=== PATIENT | female | born 1990 | race Caucasian/White ===

== ENCOUNTER 2021-03-05 01:00 | Inpatient (IN) | payer BC ==
[2021-03-05] MEDS ORDERED: Bupivacaine 0.25% HCL 30 ML VIAL ONE (08:00)
[2021-03-05] MEDS ORDERED: Zolpidem Tartrate 5 MG TAB PO PRN (20:17)
[2021-03-05] MEDS ORDERED: Ondansetron PF 4 MG/2 ML Vial IVP PRN (20:17)
[2021-03-05] MEDS ORDERED: Misoprostol 100 MCG TAB VAG PRN (20:17)
[2021-03-05] MEDS ORDERED: Lidocaine 1% (PF) 30 ML VIAL SC PRN (20:17)
[2021-03-05] MEDS ORDERED: Dextrose 50% Abboject 50 ML SYRINGE SLOW IVP PRN (20:17)
[2021-03-05] MEDS ORDERED: hydrALAZINE 20 MG/ML VIAL SLOW IVP PRN (20:17)
[2021-03-05] MEDS ORDERED: Dextrose 5% in Water 1,000 ML IV PRN (20:17)
[2021-03-05] MEDS ORDERED: Misoprostol 100 MCG TAB VAG SCH (20:17)
[2021-03-05] MEDS ORDERED: Ibuprofen 800 MG TAB PO PRN (20:17)
[2021-03-05] MEDS ORDERED: NS / Oxytocin 40 units/1000ml 1,000 ML IV PRN (20:17)
[2021-03-05] MEDS ORDERED: Acetaminophen 500 MG TAB PO PRN (20:17)
[2021-03-05] MEDS ORDERED: HumaLOG 300 UNITS/3 ML VIAL SC PRN (20:17)
[2021-03-05] MEDS ORDERED: Butorphanol Tartrate 1 MG/ML VIAL SLOW IVP PRN (20:17)
[2021-03-05] MEDS ORDERED: Promethazine HCl 25 MG/ML VIAL IM PRN (20:17)
[2021-03-05] MEDS ORDERED: HYDROcodone/Acetaminophen 5/325 mg Tablet PO PRN ×2 (20:17)
[2021-03-05 20:18] VITALS: BMI 31.3
[2021-03-05] MEDS: Lactated Ringer's 1,000 ML IV SCH (21:18)
[2021-03-05 22:06] LABS: Mean Corpuscular HGB CONC 34.9 g/dL (32.0-36.0); Mean Corpuscular Hemoglobin 30.5 pg (27.0-33.0); Mean Corpuscular Volume 87.5 fl (81.6-98.3); Mean Platelet Volume 10.2 fl (7.4-10.4); Platelet Count 355 10x3/uL (150-450); RBC Distribution Width 12.8 % (11.5-14.5); Red Blood Cell (RBC) Count 3.93 10x6/uL (3.90-5.03); White Blood Cell (WBC) Count 14.5 10x3/uL (3.5-10.5)
[2021-03-05 22:40] LABS: Hep B Surf Ag Non-Reactive S/CO (NonReactive); Syphilis Antibody Nonreactive (Nonreactive); Syphilis Antibody Index 0.05 S/CO (<1.00 Non-Reactive)
[2021-03-05 22:48] LABS: HBSAg Index 0.15 S/CO (0-0.99)
[2021-03-06] MEDS ORDERED: NS w/ Oxytocin 30 units 500 ML IVPB SCH ×2 (06:45)
[2021-03-06] MEDS ORDERED: NS w/ Oxytocin 30 units 500 ML IVPB PRN (06:45)
[2021-03-06] MEDS: Lactated Ringer's 1,000 ML IV SCH ×2 (07:20→11:40)
[2021-03-06] MEDS ORDERED: Fentanyl 4 mcg/Bup 0.1% Cadd 100 ML ONE ×2 (11:04→23:50)
[2021-03-06] MEDS: Fentanyl 4 mcg/Bupivacaine 0.1% Cassette 100 ML EPIDURAL SCH ×3 (11:36→23:52)
[2021-03-06] MEDS ORDERED: Ondansetron PF 4 MG/2 ML Vial IVP PRN (11:43)
[2021-03-06] MEDS ORDERED: Lactated Ringer's 500 ML IV PRN (11:43)
[2021-03-06] MEDS ORDERED: Naloxone HCl 0.4 mg/ml Vial IVP PRN ×2 (11:43)
[2021-03-06] MEDS ORDERED: diphenhydrAMINE 50 MG/ML VIAL IVP PRN (11:43)
[2021-03-06] MEDS ORDERED: Acetaminophen 325 MG TAB PO PRN (11:43)
[2021-03-06] MEDS ORDERED: Promethazine HCl 25 MG/ML VIAL IM PRN (11:43)
[2021-03-06] MEDS ORDERED: Communication Order-Pharmacy FS SCH (11:45)
[2021-03-06] MEDS ORDERED: ePHEDrine Sulfate 50 MG/10 ML VIAL SLOW IVP PRN (11:57)
[2021-03-06] MEDS ORDERED: Hydrocerin (Eucerin) Cream 120 gm Jar TOP PRN (11:57)
[2021-03-06] MEDS ORDERED: Calcium Carbonate 500 MG ChewTAB PO PRN (20:50)
[2021-03-07] MEDS ORDERED: Misoprostol 200 MCG TAB ONE (03:41)
[2021-03-07] MEDS ORDERED: Fentanyl 4 mcg/Bup 0.1% Cadd 100 ML ONE (07:21)
[2021-03-07] MEDS ORDERED: Tranexamic Acid 1,000 MG/10 ML VIAL ONE (07:27)
[2021-03-07] MEDS ORDERED: Carboprost 250 MCG/ML AMP ONE (07:27)
[2021-03-07] MEDS ORDERED: Methylergonovine 0.2 MG/ML VIAL ONE (07:28)
[2021-03-07] MEDS: Fentanyl 4 mcg/Bupivacaine 0.1% Cassette 100 ML EPIDURAL SCH (07:40)
[2021-03-07] MEDS: Lactated Ringer's 1,000 ML IV SCH (07:50)
[2021-03-07] MEDS ORDERED: Misoprostol 200 MCG TAB PR SCH (11:30)
[2021-03-07] MEDS ORDERED: Ibuprofen 800 MG TAB PO SCH (11:30)
[2021-03-07] MEDS ORDERED: Adacel (T-DAP) 0.5 ML SYRINGE IM ONE (11:49)
[2021-03-07] MEDS ORDERED: Bisacodyl 10 MG SUPP PR PRN (11:49)
[2021-03-07] MEDS ORDERED: diphenhydrAMINE 25 MG CAP PO PRN (11:49)
[2021-03-07] MEDS ORDERED: Milk Of Magnesia 30 ML UDCUP PO PRN (11:49)
[2021-03-07] MEDS ORDERED: hydrALAZINE 20 MG/ML VIAL SLOW IVP PRN (11:49)
[2021-03-07] MEDS ORDERED: Ondansetron PF 4 MG/2 ML Vial IVP PRN (11:49)
[2021-03-07] MEDS ORDERED: HYDROcodone/Acetaminophen 5/325 mg Tablet PO PRN ×2 (11:49)
[2021-03-07] MEDS ORDERED: Preparation H Ointment 28 GM TUBE PR PRN (11:49)
[2021-03-07] MEDS ORDERED: Benzocaine-Menthol 82.5 ML CAN TOP PRN (11:49)
[2021-03-07] MEDS ORDERED: NS w/ Oxytocin 30 units 500 ML IV SCH (12:30)
[2021-03-07] MEDS: Ferrous Sulfate 325 MG TAB PO SCH (13:59)
[2021-03-07] MEDS: Ibuprofen 800 MG TAB PO SCH (20:24)
[2021-03-07] MEDS: Docusate Calcium (SURFAK) 240 MG CAP PO SCH (20:24)
[2021-03-08] MEDS: Lactated Ringer's 1,000 ML IV SCH (04:54)
[2021-03-08] MEDS: Ibuprofen 800 MG TAB PO SCH ×3 (04:59→22:42)
[2021-03-08 07:53] LABS: Hemoglobin 10.4 g/dL (12.0-15.5)
[2021-03-08] MEDS: Ferrous Sulfate 325 MG TAB PO SCH ×2 (08:40→16:07)
[2021-03-08] MEDS: Prenatal Vitamin 1 TAB PO SCH (08:41)
[2021-03-08] MEDS: Docusate Calcium (SURFAK) 240 MG CAP PO SCH ×2 (08:41→22:42)
[2021-03-09] MEDS: Ibuprofen 800 MG TAB PO SCH (05:15)
[2021-03-09 08:04] VITALS: BP 102/56; TEMP 98.2
[2021-03-09] MEDS: Docusate Calcium (SURFAK) 240 MG CAP PO SCH (10:55)
[2021-03-09] MEDS: Prenatal Vitamin 1 TAB PO SCH (10:55)
[2021-03-09] MEDS: Ferrous Sulfate 325 MG TAB PO SCH (10:56)
== END 2021-03-09 17:40 | disposition home or self-care (01) | DRG 806 ==
LOC: CSHLD 19:48 → CSHPP 03-07 12:00
PROVIDERS: ADMIT Obstetrics & Gynecology; ATTEND Obstetrics & Gynecology
PROC: 10D07Z6 Extraction of Products of Conception, Vacuum, Via Natural or Artificial Opening (ICD-10-PCS; principal; 2021-03-07)
PROC: 10907ZC Drainage of Amniotic Fluid, Therapeutic from Products of Conception, Via Natural or Artificial Opening (ICD-10-PCS; 2021-03-07)
PROC: 3E0P7VZ Introduction of Hormone into Female Reproductive, Via Natural or Artificial Opening (ICD-10-PCS; 2021-03-07)
PROC: 0W8NXZZ Division of Female Perineum, External Approach (ICD-10-PCS; 2021-03-07)
DX: O24.02 Pre-existing type 1 diabetes mellitus, in childbirth (principal); D68.61 Antiphospholipid syndrome; Z37.0 Single live birth; O99.12 Other diseases of the blood and blood-forming organs and certain disorders involving the immune mechanism complicating childbirth; O99.284 Endocrine, nutritional and metabolic diseases complicating childbirth; E03.9 Hypothyroidism, unspecified; O70.1 Second degree perineal laceration during delivery; O63.1 Prolonged second stage (of labor); Z20.822 Contact with and (suspected) exposure to COVID-19; E10.9 Type 1 diabetes mellitus without complications; Z3A.38 38 weeks gestation of pregnancy; Z79.4 Long term (current) use of insulin
CPT/HCPCS: 36415; 36416; 51702; 85014; 85018; 85027; 86780; 86850; 86900; 86901; 87340; J2590; S0020

== ENCOUNTER 2022-10-13 18:00 | Inpatient (IN) | payer OTHER ==
[2022-10-13] MEDS ORDERED: Lidocaine 1% (PF) 30 ML VIAL SC PRN (18:50)
[2022-10-13] MEDS ORDERED: Misoprostol 100 MCG TAB VAG SCH (18:50)
[2022-10-13] MEDS ORDERED: Butorphanol Tartrate 1 MG/ML VIAL SLOW IVP PRN (18:50)
[2022-10-13] MEDS ORDERED: hydrALAZINE 20 MG/ML VIAL SLOW IVP PRN (18:50)
[2022-10-13] MEDS ORDERED: NS w/ Oxytocin 30 units 500 ML IV SCH ×2 (18:50)
[2022-10-13] MEDS ORDERED: HYDROcodone/Acetaminophen 5/325 mg Tablet PO PRN ×2 (18:50)
[2022-10-13] MEDS ORDERED: Ondansetron PF 4 MG/2 ML Vial IVP PRN (18:50)
[2022-10-13] MEDS ORDERED: Promethazine HCl 25 MG/ML VIAL IM PRN (18:50)
[2022-10-13] MEDS ORDERED: Ibuprofen 800 MG TAB PO PRN (18:50)
[2022-10-13] MEDS ORDERED: Lactated Ringer's 1,000 ML IV SCH (18:50)
[2022-10-13 19:10] VITALS: BMI 30.8
[2022-10-13] MEDS ORDERED: Bupivacaine HCl 0.5%/Epinephrine 1:200,000/PF 30 ml Vial ONE (19:24)
[2022-10-13 19:57] LABS: Hemoglobin 12.5 g/dL (12.0-15.5); Mean Corpuscular Hemoglobin 31.2 pg (27.0-33.0); Mean Corpuscular Volume 86.5 fl (81.6-98.3); Mean Platelet Volume 9.8 fl (7.4-10.4); Platelet Count 359 10x3/uL (150-450); Red Blood Cell (RBC) Count 4.01 10x6/uL (3.90-5.03); White Blood Cell (WBC) Count 13.1 10x3/uL (3.5-10.5)
[2022-10-13 20:18] LABS: Glucose 93 mg/dL (70-105)
[2022-10-13 20:26] LABS: SARS-CoV-2 NAA Rapid Test Not Detected (NotDetected)
[2022-10-13 21:57] LABS: Syphilis Antibody Nonreactive (Nonreactive); Syphilis Antibody Index 0.05 S/CO (<1.00 Non-Reactive)
[2022-10-13 21:58] LABS: HBSAg Index 0.13 S/CO (0-0.99); Hep B Surf Ag Non-Reactive S/CO (NonReactive)
[2022-10-14] MEDS ORDERED: Misoprostol 100 MCG TAB ONE (03:15)
[2022-10-14] MEDS ORDERED: Fentanyl 2 mcg/Bup 0.1% Cadd 100 ML ONE (09:22)
[2022-10-14] MEDS ORDERED: Acetaminophen 325 MG TAB PO PRN (10:22)
[2022-10-14] MEDS ORDERED: Ondansetron PF 4 MG/2 ML Vial IVP PRN ×2 (10:22→21:44)
[2022-10-14] MEDS ORDERED: ePHEDrine Sulfate 50 MG/10 ML VIAL SLOW IVP PRN (10:22)
[2022-10-14] MEDS ORDERED: Moisturizing Cream (Eucerin) 113 GM JAR TOP PRN (10:22)
[2022-10-14] MEDS ORDERED: Lactated Ringer's 500 ML IV PRN (10:22)
[2022-10-14] MEDS ORDERED: Naloxone HCl 0.4 mg/ml Vial IVP PRN ×2 (10:22)
[2022-10-14] MEDS ORDERED: Promethazine HCl 25 MG/ML VIAL IM PRN (10:22)
[2022-10-14] MEDS ORDERED: diphenhydrAMINE 50 MG/ML VIAL IVP PRN (10:22)
[2022-10-14] MEDS ORDERED: Communication Order-Pharmacy FS SCH (10:30)
[2022-10-14] MEDS ORDERED: Fentanyl 2 mcg/Bupivacaine 0.1% Cassette 100 ML EPIDURAL SCH (10:30)
[2022-10-14] MEDS ORDERED: Lanolin Ointment 7 GM TUBE TOP PRN (21:44)
[2022-10-14] MEDS ORDERED: Boostrix 0.5 ML (Tdap) VIAL (>/=7 yrs of age) IM ONE (21:44)
[2022-10-14] MEDS ORDERED: Milk Of Magnesia 30 ML UDCUP PO PRN (21:44)
[2022-10-14] MEDS ORDERED: Benzocaine-Menthol 82.5 ML CAN TOP PRN (21:44)
[2022-10-14] MEDS ORDERED: hydrALAZINE 20 MG/ML VIAL SLOW IVP PRN (21:44)
[2022-10-14] MEDS ORDERED: Bisacodyl 10 MG SUPP PR PRN (21:44)
[2022-10-14] MEDS ORDERED: Preparation H Ointment 28 GM TUBE PR PRN (21:44)
[2022-10-14] MEDS ORDERED: HYDROcodone/Acetaminophen 5/325 mg Tablet PO PRN ×2 (21:44)
[2022-10-14] MEDS ORDERED: diphenhydrAMINE 25 MG CAP PO PRN (21:44)
[2022-10-14] MEDS ORDERED: Docusate 100 MG CAP PO SCH (22:00)
[2022-10-14] MEDS: Ibuprofen 800 MG TAB PO SCH (22:07)
[2022-10-15] MEDS: Ibuprofen 800 MG TAB PO SCH ×2 (05:13→12:47)
[2022-10-15] MEDS: Ferrous Sulfate 325 MG TAB PO SCH ×2 (07:31→16:08)
[2022-10-15] MEDS ORDERED: Prenatal Vitamin 1 TAB PO SCH (09:00)
[2022-10-15] MEDS ORDERED: Docusate 100 MG CAP PO SCH (09:00)
[2022-10-15 19:51] VITALS: BP 112/70; TEMP 98.4
== END 2022-10-15 21:05 | disposition home or self-care (01) | DRG 806 ==
LOC: CSHLD 18:36 → CSHPP 10-14 21:28
PROVIDERS: ADMIT Obstetrics & Gynecology; ATTEND Obstetrics & Gynecology
PROC: 10907ZC Drainage of Amniotic Fluid, Therapeutic from Products of Conception, Via Natural or Artificial Opening (ICD-10-PCS; principal; 2022-10-13)
PROC: 3E0P7VZ Introduction of Hormone into Female Reproductive, Via Natural or Artificial Opening (ICD-10-PCS; 2022-10-13)
PROC: 3E033VJ Introduction of Other Hormone into Peripheral Vein, Percutaneous Approach (ICD-10-PCS; 2022-10-13)
PROC: 10E0XZZ Delivery of Products of Conception, External Approach (ICD-10-PCS; 2022-10-14)
PROC: 0KQM0ZZ Repair Perineum Muscle, Open Approach (ICD-10-PCS; 2022-10-14)
DX: O99.284 Endocrine, nutritional and metabolic diseases complicating childbirth (principal); D68.61 Antiphospholipid syndrome; Z37.0 Single live birth; Z3A.38 38 weeks gestation of pregnancy; Z20.822 Contact with and (suspected) exposure to COVID-19; E03.9 Hypothyroidism, unspecified; Z79.890 Hormone replacement therapy; Z79.82 Long term (current) use of aspirin; Z79.899 Other long term (current) drug therapy; Z88.7 Allergy status to serum and vaccine; O24.02 Pre-existing type 1 diabetes mellitus, in childbirth; E10.9 Type 1 diabetes mellitus without complications; O99.12 Other diseases of the blood and blood-forming organs and certain disorders involving the immune mechanism complicating childbirth; O70.1 Second degree perineal laceration during delivery
CPT/HCPCS: 51702; 82947; 85027; 86780; 86850; 86900; 86901; 87340; J2590; U0002